=== PATIENT | female | born 1995 | race Caucasian/White ===

== ENCOUNTER 2020-06-17 19:26 | Emergency (ER) | payer OTHER, SELFPAY ==
[2020-06-17 19:27] VITALS: BP 122/76; PULSE 86; RESP 14; TEMP 36.7; O2SAT 99; BMI 18.8
--- NOTE | 2020-06-17 19:53 | US_ITS ---
PROCEDURE: US OB TRANSVAGINAL CLINICAL INDICATION: pelvic pain DEMISE RO MISSED AB COMPARISON: No exams were available for comparison FINDINGS: There is an intrauterine gestation gestational sac with a pole. [place]-rump length is 1.46 cm correlating to gestational age of 7 weeks and 6 days. No heart tones are evident. IMPRESSION: Nonviable intrauterine gestation Dictated by: Juan Porras MD 06/18/2020 05:25 Juan Porras MD in [facility] 06/18/2020 05:25
[2020-06-17 20:00] VITALS: BP 129/75; PULSE 61; O2SAT 100
--- NOTE | 2020-06-17 20:00 | PC.NURSE ---
Contacted [facility] for medical records.
--- NOTE | 2020-06-17 20:06 | PC.NURSE ---
Pt states OB at [facility] is
--- NOTE | 2020-06-17 20:14 | [facility].EDPREG ---
ED Disposition Clinical Impression: Miscarriage Disposition: Home, Self-Care Condition on Discharge: Good Instructions: DI for Miscarriage Additional Instructions: call ob in am for follow up Referrals: Cesia Figueroa [Primary Care Provider] - - Critical Care Critical Care Time: No Attestation: On 06/17/20, the high probability of a clinically significant, sudden or life threatening deterioration of the following system(s) required my full and direct attention, intervention and personal management. The time I documented below is in addition to time spent performing reported procedures but includes the following listed in this critical care notation. Medical Decision Making - Medical Records Medical records reviewed: Yes: I reviewed the patient's medical records. - Anselmo Inquiry Pt receiving controlled substance: No Vital Signs: 06/17/20 19:27 Temperature 98.1 F Temperature Source Oral Pulse Rate [Left Radial] 86 Respiratory Rate 14 Blood Pressure [Right Arm] 122/76 Blood Pressure Mean [Right Arm] 91 Blood Pressure Source [Right Arm] Automatic Cuff Blood Pressure Position [Right Arm] Sitting 02 Sat by Pulse Oximetry 99 Oxygen Delivery Method Room Air - Lab Data Lab results reviewed: Yes: I reviewed the patient's lab results. Lab Results 06/17/20 19:48: Urine HCG, Qual Positive 06/17/20 19:50: Urine Color Red, Urine Appearance Turbid, Urine pH 7.5, Ur Specific [place] 1.020, Urine Protein 2+, Urine Glucose (UA) Negative, Urine Ketones Negative, Urine Blood 3+, Urine Nitrate Positive, Urine Bilirubin Negative, Urine Urobilinogen 1.0, Ur Leukocyte Esterase Trace, Urine RBC Tntc, Urine WBC Occasional, Urine Bacteria 1+ 06/17/20 20:00: WBC 16.0 H, RBC 4.40, Hgb 13.4, Hct 40.1, MCV 91.0, MCH 30.4, MCHC 33.5, RDW 13.2, Plt Count 285, MPV 7.5, Neut % (Auto) 72.8, Lymph % (Auto) 18.6, [place] % (Auto) 4.7, Eos % (Auto) 3.6, Baso % (Auto) 0.4, Neut # (Auto) 11.7 H, Lymph # (Auto) 3.0, [place] # (Auto) 0.8, Eos # (Auto) 0.6 H, Baso # (Auto) 0.1, Total Counted 100, Neutrophils % (Manual) 69, Lymphocytes % (Manual) 19, Monocytes % (Manual) 5, Eosinophils % (Manual) 7 H, Platelet Estimate Normal, RBC Morphology Normal 06/17/20 20:00: Sodium 138, Potassium 3.6, Chloride 106, Carbon Dioxide 25, Anion Gap 10.6, BUN 14, Creatinine 0.60, Estimated Creat Clear 123, Estimated GFR 122, Est GFR ( Amer) 147, Glucose 92, Calcium 9.2, Total Bilirubin 0.3, AST 26, ALT 15, Alkaline Phosphatase 69, Total Protein 7.9, Albumin 4.7, Globulin 3.2, Albumin/Globulin Ratio 1.5 06/17/20 20:00: Serum HCG, Qual Positive 06/17/20 20:00: Blood Type O Positive 06/17/20 20:00: SARS-CoV-2 IgG Ab (Rapid) Negative, SARS-CoV-2 IgM Ab (Rapid) Negative Result diagrams: 06/17/20 20:00 06/17/20 20:00 Orders (Tests/Meds): ED MEDICATIONS Generic Name Dose Route Start Last Admin Trade Name Freq PRN Reason Stop Dose Admin Sodium Chloride 1,000 mls @ 999 mls/hr 06/17/20 21:00 06/17/20 21:00 Sod Chlor 0.9% 1000ml Bag IV 06/17/20 22:00 999 mls/hr .[id number] RAEGAN Administration Discontinued Medications Generic Name Dose Route Start Last Admin Trade Name Freq PRN Reason Stop Dose Admin Morphine Sulfate 4 mg 06/17/20 20:50 06/17/20 21:00 Morphine 4mg/Ml Syringe IV 06/17/20 20:51 4 mg ONCE ONE Administration Ondansetron HCl 4 mg 06/17/20 20:50 06/17/20 21:00 Ondansetron 4mg/2ml Vial IV 06/17/20 20:51 4 mg ONCE ONE Administration ORDERS Category Date Time Status Beta HCG, Quant [HCG,Quantitative] Stat Lab 06/17/20 21:27 Ordered US OB transvaginal Stat Ultrasound 06/17/20 19:53 Taken - US Data US Images: Pelvis ED US Reviewed: Yes: I have viewed radiologist's interpretation Findings Narrative: 8 weeks no activity HPI - General Chief complaint: OB/Uterine Contractions Stated complaint: Pain in Pelvic area Time Seen by Provider: 06/17/20 20:14 Mode of Arrival: Ambulatory Source
[2020-06-17 20:17] LABS: Chloride 106 mmol/L (98-107)
[2020-06-17 20:18] LABS: Potassium 3.6 mmoL/L (3.5-5.1); Sodium 138 mmol/L (136-145)
[2020-06-17 20:20] LABS: Alanine Aminotransferase 15 U/L (12-78); Aspartate Amino Transferase 26 U/L (14-36); Blood Urea Nitrogen 14 mg/dl (7-17); Creatinine Clearance Estimated 123 mL/min (50-200); Estimated Glomerular Filt Rate 122 ml/min (>60); GFR (African American) 147 ML/MIN (>60)
[2020-06-17 20:21] LABS: Albumin Level 4.7 g/dl (3.5-5.0); Albumin/Globulin Ratio 1.5 (1.1-1.8); Alkaline Phosphatase 69 U/L (38-126); Anion Gap 10.6 mEq/L (5-15); Bilirubin,Total 0.3 mg/dl (0.2-1.3); Calcium 9.2 mg/dl (8.4-10.2); Carbon Dioxide 25 mmol/L (22.0-30.0); Globulin 3.2 g/dL (1.3-3.2); Glucose 92 mg/dl (74-100); Total Protein,Serum 7.9 g/dl (6.3-8.2)
[2020-06-17 20:26] LABS: Appearance,Urine TURBID (Clear); Bilirubin,Urine Negative (Negative); Blood, Urine 3+ (Negative); Color,Urine RED (Yellow); Glucose,Urine (UA) Negative (Negative); Ketones,Urine Negative (Negative); Leukocyte Esterase,Urine TRACE (Negative); Microscopic, Urine URINE MICROSCOPIC (MICROSCOPIC); Nitrate,Urine POSITIVE (Negative); PH,Urine 7.5 (5.0-8.5); Protein,Urine 2+ (Negative)
[2020-06-17 20:26] LABS: Basophils # 0.1 K/mm3 (0-0.2); Basophils % 0.4 % (0.1-2.0); Eosinophils # 0.6 K/mm3 (0.0-0.4); Eosinophils % 3.6 % (0.1-12.0); Hematocrit 40.1 % (37.0-47.0); Hemoglobin 13.4 g/dL (12.2-16.2); Lymphocytes % 18.6 % (10-50); Mean Corpuscular HGB Conc 33.5 g/dL (31.8-35.4); Mean Corpuscular Hemoglobin 30.4 pg (27.0-31.2); Mean Platelet Volume 7.5 fl (7.4-10.4); Monocytes # 0.8 K/mm3 (0.1-1.0); Monocytes % 4.7 % (1.7-9.3); Neutrophils # 11.7 K/mm3 (1.8-7.8); Neutrophils % 72.8 % (37.0-80.0); Platelet Count 285 K/mm3 (142-424); Red Cell Distribution Width 13.2 % (11.5-17.5)
[2020-06-17 20:27] LABS: MANUAL DIFFERENTIAL MANUAL DIFFERENTIAL (MANUAL DIFF)
[2020-06-17 20:30] LABS: Urine Pregnancy, HCG Qual. Positive (Negative)
[2020-06-17 20:34] LABS: Eosinophils % 7 % (0-3); Lymphocytes % 19 % (10-50); Monocytes % 5 % (2-9); Neutrophils % 69 % (42-76); Platelet Estimate Normal; RBC Morphology Normal; Total Cells Counted 100
[2020-06-17 20:37] LABS: HCG Qualitative, Serum Positive (Negative)
[2020-06-17 20:42] LABS: RBC,Urine TNTC #/hpf (0-3); WBC,Urine Occasional #/hpf (0-3)
[2020-06-17 20:43] LABS: Bacteria,Urine 1+ /lpf
[2020-06-17 20:45] LABS: Coronavirus 19 IgG Antibody Negative (Negative); Coronavirus 19 IgM Antibody Negative (Negative)
[2020-06-17 21:00] VITALS: BP 123/74; PULSE 67; O2SAT 100
[2020-06-17 21:48] VITALS: BP 135/77; PULSE 78; RESP 16; TEMP 36.7; O2SAT 98
[2020-06-17 22:25] LABS: HCG,Quantitative 18661 mIU/ml (0-5.42)
== END 2020-06-17 21:50 | disposition home or self-care (01) ==
PROVIDERS: Emergency Provider Emergency Medicine; PCP Family Medicine
DX: O03.9 Complete or unspecified spontaneous abortion without complication (principal); F17.210 Nicotine dependence, cigarettes, uncomplicated; Z88.0 Allergy status to penicillin; Z01.84 Encounter for antibody response examination
CPT/HCPCS: 76817; 80053; 81001; 81025; 84702; 84703; 85007; 85025; 86328; 86900; 86901; 96365; 96375; 99284; J2405